=== PATIENT | male | born 1955 | race Caucasian/White ===

== ENCOUNTER → 2017-05-17 09:01 | Outpatient (CLI) | payer MEDICARE, SELFPAY ==
[2017-05-17 13:28] LABS: Basophils # 0.1 K/mm3 (0-0.2); Basophils % 0.8 % (0.1-2.0); Eosinophils # 0.2 K/mm3 (0.0-0.4); Eosinophils % 2.3 % (0.1-12.0); Hematocrit 43.5 % (42.0-52.0); Hemoglobin 14.4 g/dL (14.1-18.0); Lymphocytes # 1.6 K/mm3 (0.7-4.5); Lymphocytes % 22.1 K/mm3 (10-50); Mean Corpuscular HGB Conc 33.1 g/dL (31.8-35.4); Mean Corpuscular Volume 96.9 fl (80-94); Mean Platelet Volume 8.7 fl (7.4-10.4); Monocytes # 0.5 K/mm3 (0.1-1.0); Neutrophils # 4.8 K/mm3 (1.8-7.8); Neutrophils % 67.9 % (37.0-80.0); Platelet Count 228 K/mm3 (142-424); Red Blood Count 4.49 M/mm3 (4.60-6.20); Red Cell Distribution Width 15.3 % (11.5-17.5)
[2017-05-17 13:52] LABS: Alanine Aminotransferase 38 U/L (12-78); Albumin Level 3.4 gm/dL (3.4-5.0); Albumin/Globulin Ratio 1.1 (1.1-1.8); Alkaline Phosphatase 137 U/L (46-116); Anion Gap 13.8 mEq/L (5-15); Aspartate Amino Transferase 19 U/L (15-37); Bilirubin,Total 0.4 mg/dL (0.2-1.0); Blood Urea Nitrogen 19 mg/dL (7-18); Calcium 9.2 mg/dL (8.5-10.1); Carbon Dioxide 27 mmol/L (21.0-32.0); Chloride 108 mmol/L (98-107); Chol/HDL Ratio 3.3 (1-3.5); Cholesterol 109 mg/dL (140-200); Creatinine,Serum 1.53 mg/dL (0.70-1.30); Estimated Glomerular Filt Rate 47 ml/min (>60); GFR (African American) 56 ML/MIN (>60); Globulin 3.1 gm/dl (1.3-3.2); Glucose 106 mg/dL (74-106); HDL Cholesterol 33 mg/dL (27-67); LDL Cholesterol 54 mg/dL (0-130); Potassium 3.8 mmoL/L (3.5-5.1); Sodium 145 mmol/L (136-145); Thyroid Stimulating Hormone 0.41 uIU/ml (0.358-3.740); Total Protein,Serum 6.5 gm/dL (6.4-8.2); Triglycerides 111 mg/dL (30-200); VLDL Cholesterol 22 mg/dL (0-40)
== END ==
PROVIDERS: PCP Internal Medicine Adolescent Medicine; Visit Provider Internal Medicine Adolescent Medicine
DX: I10 Essential (primary) hypertension (principal); E78.5 Hyperlipidemia, unspecified; E03.9 Hypothyroidism, unspecified
CPT/HCPCS: 36415; 80053; 80061; 84443; 85025

== ENCOUNTER → 2018-01-15 14:01 | Outpatient (CLI) | payer MEDICARE, SELFPAY ==
[2018-01-15 14:22] LABS: Basophils % 0.5 % (0.1-2.0); Eosinophils # 0.1 K/mm3 (0.0-0.4); Hematocrit 44.8 % (42.0-52.0); Hemoglobin 15.3 g/dL (14.1-18.0); Lymphocytes # 1.7 K/mm3 (0.7-4.5); Lymphocytes % 24.2 K/mm3 (10-50); Mean Corpuscular HGB Conc 34.1 g/dL (31.8-35.4); Mean Corpuscular Hemoglobin 32.6 pg (27.0-31.2); Mean Corpuscular Volume 95.6 fl (80-94); Mean Platelet Volume 8.1 fl (7.4-10.4); Monocytes # 0.7 K/mm3 (0.1-1.0); Monocytes % 9.3 % (1.7-9.3); Neutrophils # 4.5 K/mm3 (1.8-7.8); Platelet Count 234 K/mm3 (142-424); Red Blood Count 4.69 M/mm3 (4.60-6.20); Red Cell Distribution Width 14.6 % (11.5-17.5); White Blood Count 7.1 K/mm3 (4.8-10.8)
[2018-01-15 15:32] LABS: Anion Gap 10.6 mEq/L (5-15); Blood Urea Nitrogen 14 mg/dL (7-18); Calcium 9.3 mg/dL (8.5-10.1); Carbon Dioxide 31 mmol/L (21.0-32.0); Chloride 108 mmol/L (98-107); Creatinine,Serum 1.41 mg/dL (0.70-1.30); Estimated Glomerular Filt Rate 51 ml/min (>60); GFR (African American) 62 ML/MIN (>60); Glucose 93 mg/dL (74-106); Potassium 4.6 mmoL/L (3.5-5.1); Sodium 145 mmol/L (136-145)
== END ==
PROVIDERS: Family Provider Internal Medicine Adolescent Medicine; PCP Internal Medicine Adolescent Medicine; Visit Provider Surgery
DX: K46.9 Unspecified abdominal hernia without obstruction or gangrene (principal); Z01.818 Encounter for other preprocedural examination
CPT/HCPCS: 36415; 80048; 85025; 93005

== ENCOUNTER → 2020-07-17 07:35 | Outpatient (CLI) | payer MEDICARE, SELFPAY ==
--- NOTE | 2020-07-17 07:40 | CT_ITS ---
PROCEDURE: CT LUNG SCREENING CLINICAL INDICATION: H/O NICOTINE DEPENDENCE Current smoker 50 pack year smoking history COPD COMPARISON: CT CTAC CTA-CHEST from 06/11/2013 TECHNIQUE: The exam was performed on a GE Light Speed [address] scanner using 2.90 mGy CTDI. A low dose helical CT CHEST was performed on a multi-detector scanner. All CT scans at the facility use one or more dose reduction, viz: automated exposure control, ma/kV adjustment per patient size (including targeted exams where dose is matched to indication, i.e. head), or iterative reconstruction technique. The LDCT was performed in a facility that meets the criteria for the screening program. Data regarding this exam was submitted to ACR which is an approved registry. The order for this exam indicates that it came as a result of a lung cancer screening counseling shard decision-making visit that included all the elements required of such a visit including smoking cessation. The radiologist interpreting this exam meets the CMS criteria for the LDCT lung cancer screening program. The exam is reported using the Lung-RADS classification scale and reported to the ACR registry. NOTE: This study was performed for the specific purposes of lung cancer screening and is not an alternative to diagnostic chest CT. RADIATION DOSE: CTDI vol(CT dose Index-volume) = 2.90mG DLP (Dose Length Product) = 120.11 mGcm FINDINGS: COPD with scattered areas of scarring. There is an azygos fissure is a normal variant. Evidence of old granulomatous disease. 4 mm ground-glass nodule right upper lobe subpleural region less apparent from the previous exam. Stable nodularity noted in the left major fissure. OTHER FINDINGS: Coronary artery calcification. There is an infrarenal abdominal aortic aneurysm. This is incompletely imaged and measures up to 6 cm in AP dimension. IMPRESSION: Lung-RADS Category 1 Negative Follow-up: Continue annual screening with LDCT in 12 months There is at least a 6 cm abdominal aortic aneurysm incompletely image. This was noted on the ultrasound performed on the same day and patient's provider was notified of this finding. CT angiography of the aorta is suggested for further evaluation. Dictated by: Jaden Naik MD 07/20/2020 09:44 Jaden Naik MD in [place] 07/20/2020 09:44
--- NOTE | 2020-07-17 07:41 | US_ITS ---
PROCEDURE: US AORTA CLINICAL INDICATION: CARDIOVASCULAR DISORDER COMPARISON: US AOR US AORTA (RETROPERITONEAL) from 07/17/[address] LUNG SCREENING from 07/17/2020 FINDINGS: There is an abdominal aortic aneurysm which measures 6 x 6 cm fusiform in nature. This is increased in size previously measuring 4 x 4 cm. There is intramural plaque with some calcification. Proximal common iliacs measure 1.3 and 1 cm. IMPRESSION: 6 cm abdominal aortic aneurysm Dictated by: Jaden Naik MD 07/17/2020 09:15 Jaden Naik MD in [place] 07/17/2020 09:15
--- NOTE | 2020-07-17 08:42 | US_ITS ---
APPROVED REPORT Exam Type: Lower Extremity Segmental Pressures Telephone Operator Receptionist: Rica Huff RVT Indications Rest Pain: Bilaterally Current Smoker Risk Factors Hypertension CAD Hyperlipidemia TIA/CVA History Cardiac Disease Current Smoker Pressures/Indices Right Indices Left Indices Brachial 149.00 mmHg Brachial 135.00 mmHg Low Thigh 136.00 mmHg 0.91 Low Thigh 144.00 mmHg 0.97 Calf 139.00 mmHg 0.93 Calf 151.00 mmHg 1.01 Ankle(PT) 156.00 mmHg 1.05 Ankle(PT) 153.00 mmHg 1.03 Ankle(DP) 145.00 mmHg 0.97 Ankle(DP) 149.00 mmHg 1.00 Digit 138.00 mmHg 0.93 Digit 126.00 mmHg 0.85 Findings RT ELDER:1.05 LT ELDER:1.03 RT TBI:0.93 LT TBI:0.85 NORMAL PULSES BILATERAL NORMAL WAVEFORMS BILATERAL Conclusion RT ELDER:1.05 LT ELDER:1.03 RT TBI:0.93 LT TBI:0.85 NORMAL PULSES BILATERAL NORMAL WAVEFORMS BILATERAL Normal appearing resting noninvasive lower extremity arterial study. Electronically signed by : Jaden Naik MD 07/17/2020 16:16:54
== END ==
PROVIDERS: PCP Nurse Practitioner Family; Visit Provider Nurse Practitioner Family
DX: M79.604 Pain in right leg; Z87.891 Personal history of nicotine dependence; Z12.2 Encounter for screening for malignant neoplasm of respiratory organs; Z13.6 Encounter for screening for cardiovascular disorders; M79.605 Pain in left leg; R09.89 Other specified symptoms and signs involving the circulatory and respiratory systems
CPT/HCPCS: 71271; 76770; 93923

== ENCOUNTER → 2020-08-01 08:30 | Outpatient (CLI) | payer MEDICARE, SELFPAY ==
[2020-08-01 10:04] LABS: Blood Urea Nitrogen 24 mg/dl (9-20); Estimated Glomerular Filt Rate 56 ml/min (>60); GFR (African American) 67 ML/MIN (>60)
== END ==
PROVIDERS: Visit Provider Thoracic Surgery (Cardiothoracic Vascular Surgery)
DX: I71.4 Abdominal aortic aneurysm, without rupture (principal)
CPT/HCPCS: 36415; 82565; 84520

== ENCOUNTER → 2020-08-04 10:17 | Outpatient (CLI) | payer MEDICARE, SELFPAY ==
--- NOTE | 2020-08-04 10:21 | CT_ITS ---
Procedure: CT ANGIO ABDOMEN PELVIS CLINICAL HISTORY: AAA COMPARISON: No exams were available for comparison TECHNIQUE: IV Contrast: 100ml Isovue 370 Axial images obtained with sagittal and coronal reformats. All CT scans at the facility use one or more dose reduction, viz: automated exposure control, ma/kV adjustment per patient size (including targeted exams where dose is matched to indication, i.e. head), or iterative reconstruction technique. FINDINGS: Atherosclerotic vascular calcification of the visualized aorta. There is an infrarenal abdominal aortic aneurysm measuring 6.3 x 6 centimeters. There is significant intramural thrombus noted with more than 50 percent of the lumen occupied by thrombus. The proximal extent of the abdominal aortic aneurysm is noted approximately 3 centimeters below the level of the renal arteries. The aneurysm extends up to the level of the bifurcation. Multiple focal linear high calcifications are noted within the thrombosis of the aneurysm. Retroaortic left renal vein is noted. Bilateral common iliac arteries demonstrate are aneurysmal measuring 1.6 centimeters on the right and 1.6 centimeters on the left. Extensive atherosclerotic vascular calcification of the visualized thoracic aorta. No significant retroperitoneal soft tissue density to suggest leak. Minor atherosclerotic vascular calcification noted at the origin of the celiac trunk and SMA without evidence of stenosis. Minor bibasal atelectasis is noted. Median sternotomy is partially visualized. The liver is unremarkable. Multiple hypodense lesions are noted in the kidneys bilaterally measuring up to the 1.3 centimeters. The adrenal glands are unremarkable. Multiple calcifications in the spleen, likely secondary to prior granulomatous disease. Visualized large and small bowel loops demonstrate no focal wall thickening, obstruction or adjacent inflammatory changes. Few colonic diverticula without evidence of diverticulitis. Multilevel degenerative changes of the visualized lumbar spine. IMPRESSION: Infrarenal abdominal aortic aneurysm measuring 6.3 x 6.2 meters, demonstrates intraluminal thrombus with calcifications. Minor atherosclerotic calcification noted at the origins of the celiac trunk, SMA and bilateral renal arteries without evidence significant stenosis. Dictated by: Mandy Michaels 08/04/2020 11:11 Mandy Michaels in [place] 08/04/2020 11:11
== END ==
PROVIDERS: PCP Nurse Practitioner Family; Visit Provider Thoracic Surgery (Cardiothoracic Vascular Surgery)
DX: I71.4 Abdominal aortic aneurysm, without rupture (principal)
CPT/HCPCS: 74174; Q9967

== ENCOUNTER → 2021-01-13 09:33 | Outpatient (CLI) | payer MEDICARE, SELFPAY ==
--- NOTE | 2021-01-13 09:49 | CT_ITS ---
Procedure: CT ANGIO ABDOMEN/FEMORAL CLINICAL HISTORY: AAA Abdominal aortic aneurysm COMPARISON: CT CT ANGIO ABDOMEN PELVIS from 08/04/2020 TECHNIQUE: IV Contrast: 100ml Isovue 370 Axial images obtained with sagittal and coronal reformats. All CT scans at the facility use one or more dose reduction, viz: automated exposure control, ma/kV adjustment per patient size (including targeted exams where dose is matched to indication, i.e. head), or iterative reconstruction technique. FINDINGS: CTA abdomen: Unfortunately, the exam does not cover the abdominal aorta at the level of an above the renal arteries to include the SMA and celiac. There been multiple attempts to contact the patient for repeat exam to include its area however they have been unsuccessful. Repeat exam to include the upper abdominal aorta can be performed if needed. There has been interval insertion of an aortoiliac stent graft. The most superior aspect of the graft is not included on the images. No evidence of graft leak. The [place] abdominal aorta measures 6.8 cm AP and 6 cm transverse with mural thrombus and scattered areas of calcification. The iliac limbs of the graft are widely patent. The origins of the renal arteries, SMA, and celiac are not included on the study. No significant stenosis of the iliac arteries. Lower extremity extremity runoff: Mild atheromatous changes. No significant stenotic lesions evident. The common femoral, femoral, popliteal, and trifurcation vessels are unremarkable. There is 3 vessel runoff to the ankle on both sides. The profundus femora are patent Nonvascular a large gallstone is present. No evidence of retroperitoneal hemorrhage. There are small bilateral renal cysts. There are 2 nonobstructing right renal calculi are present in the lower pole at 2 mm each. There is colonic diverticulosis but no evidence of diverticulitis. There are minimal osteoarthritic changes of the knees with chondrocalcinosis of the medial meniscus on both sides IMPRESSION: 1. Status post aorto iliac stent graft placement. No evidence of graft leak. No change in the aneurysmal dilatation of the [place] aorta with mural thrombus and calcific plaque. 2. Cholelithiasis. 3. Unremarkable bilateral lower extremity runoff. 4. Exam does not cover the most cephalad portion of the stent, ostium of the renal arteries, and the origin of the celiac and SMA. Multiple attempts have been made to contact the patient to return for repeat exam of the upper abdominal aorta but have been unsuccessful. Dictated by: Jaden Naik MD 01/27/2021 09:47 Jaden Naik MD in [place] 01/27/2021 09:47
[2021-01-13 10:04] LABS: Blood Urea Nitrogen 16 mg/dl (9-20); Estimated Glomerular Filt Rate 51 ml/min (>60); GFR (African American) 62 ML/MIN (>60)
== END ==
PROVIDERS: PCP Nurse Practitioner Family; Visit Provider Thoracic Surgery (Cardiothoracic Vascular Surgery)
DX: I71.4 Abdominal aortic aneurysm, without rupture (principal)
CPT/HCPCS: 36415; 75635; 82565; 84520; Q9967

== ENCOUNTER → 2021-07-19 10:36 | Outpatient (CLI) | payer MEDICARE, SELFPAY ==
--- NOTE | 2021-07-19 10:40 | CT_ITS ---
FINAL REPORT CLINICAL HISTORY: ENCOUNTER FOR SCREENING FOR MALIGNANT NEOPLASM smoker , 1ppd x 40 years COMPARISON: July 17, 2020 FINDINGS: Low-Dose Chest CT CTDI vol (mGy): 2.90 DLP (mGy-cm): 114.90 Axial images were obtained from the lung apex to the mid abdomen by computed tomography. Low-dose protocol was utilized. FINDINGS: CHEST: There is no axillary adenopathy. There is no hilar or mediastinal adenopathy. The heart is proper size. There is been median sternotomy. There is no pericardial or pleural effusion. Limited images of the upper abdomen are unremarkable. Lung window images demonstrate mild changes of emphysema. There is mild scarring. There is a calcified granuloma in the left upper lobe. There is a 4 mm nodule in the right upper lobe well seen on image 48, stable. IMPRESSION: Right upper lobe nodule. Lung RADS category 2. Recommend 12 month follow-up low-dose chest CT. Reviewed, Interpreted and Dictated by Caesar Bourgeois III, MD Transcribed by Jessica Robles Authenticated by Caesar Bourgeosi III, MD on 07/19/2021 01:14:31 PM [facility]
== END ==
PROVIDERS: PCP Nurse Practitioner Family; Visit Provider Nurse Practitioner Family
DX: Z87.891 Personal history of nicotine dependence (principal); Z12.2 Encounter for screening for malignant neoplasm of respiratory organs
CPT/HCPCS: 71271

== ENCOUNTER → 2022-01-12 12:34 | Outpatient (CLI) | payer MEDICARE, SELFPAY ==
--- NOTE | 2022-01-12 13:05 | CT_ITS ---
FINAL REPORT TECHNIQUE: Axial CT images were performed through the abdomen pelvis utilizing a CTA protocol. Coronal and sagittal reformatted images were submitted. This study was performed with techniques to keep radiation doses as low as reasonably achievable (ALARA). Individualized dose reduction techniques using automated exposure control or adjustment of mA and/or kV according to the patient's size were employed. CLINICAL HISTORY: S/P AAA REPAIR FINDINGS: CTA: There is a patent aortic stent graft. The aneurysm sac measures 5.4 cm and previously measured 6.3 cm. There are multiple calcifications within the thrombus, stable. There is no convincing evidence of endograft leak. There is mild narrowing at the origin of the celiac axis. The proximal SMA is patent. The ACACIA is occluded at its origin. The iliac limbs are patent. The renal arteries are patent bilaterally. ABDOMEN: The liver is normal in size and attenuation. The gallbladder is present. The spleen is unremarkable. The adrenals are normal. The pancreas is unremarkable. There are multiple small renal masses that are stable and likely represent cysts. No free fluid or adenopathy is identified. No findings for mechanical bowel obstruction are identified. PELVIS: The appendix is not identified. There are several sigmoid diverticulum. The urinary bladder is unremarkable. No free fluid, free air, abscess or adenopathy is identified. IMPRESSION: Patent aortic stent graft. Aneurysm sac measures 5.4 cm and previously measured 6.3 cm. Reviewed, Interpreted and Dictated by Caesar Bourgeois III, MD Transcribed by Ash Arias Authenticated and [facility]
--- NOTE | 2022-01-12 13:37 | CT_ITS ---
FINAL REPORT CLINICAL HISTORY: S/P AAA REPAIR FINDINGS: Thin section axial CT images of the chest were obtained with contrast. 3D reformatted images were also obtained. This study was performed with techniques to keep radiation doses as low as reasonably achievable (ALARA). Individualized dose reduction techniques using automated exposure control or adjustment of mA and/or kV according to the patient's size were employed. There is evidence of median sternotomy. There is no evidence of pulmonary embolism. There is ectasia of the descending thoracic aorta at 3.1 cm. There is no evidence of thoracic aortic aneurysm or dissection. There is no evidence of mediastinal or hilar mass or adenopathy. There is bilateral apical scarring. A 6 mm nodule is seen near the minor fissure. There is bibasilar atelectasis or scarring. IMPRESSION: Ectasia of the descending thoracic aorta without aneurysm. 6 mm pulmonary nodule near the minor fissure. Consider follow-up CT in 6-12 months. Reviewed, Interpreted and Dictated by Caesar Bourgeois III, MD Transcribed by Ash Arias Authenticated and [facility]
== END ==
PROVIDERS: PCP Nurse Practitioner Family; Visit Provider Thoracic Surgery (Cardiothoracic Vascular Surgery)
DX: R42 Dizziness and giddiness (principal); I71.4 Abdominal aortic aneurysm, without rupture; Z98.890 Other specified postprocedural states; Z86.79 Personal history of other diseases of the circulatory system
CPT/HCPCS: 71275; 74174; Q9967

== ENCOUNTER → 2022-02-15 08:08 | Outpatient (POV) | payer MEDICARE, SELFPAY | PROVIDERS: Visit Provider Dermatology | DX: Z00.00 Encounter for general adult medical examination without abnormal findings (principal) ==

== ENCOUNTER → 2022-02-15 08:44 | Outpatient (CLI) | payer MEDICARE, SELFPAY ==
--- NOTE | 2022-02-15 08:52 | CA_ITS ---
FINAL REPORT TECHNIQUE: Color Doppler, duplex Doppler and diggs scale sonography of the bilateral neck arterial vasculature was performed. Velocities were measured in the carotid arteries. Stenosis evaluation based on the validated velocity criteria. CLINICAL HISTORY: DIZZINESS,HTN,CAD,SMOKER FINDINGS: The peak systolic velocity of the right common carotid artery is 62 cm/s. The peak systolic velocity of the right internal carotid artery is 77 cm/s and end diastolic velocity 25 cm/s. The ICA/CCA ratio is 1.44. A bqyi-ny-okqffvzz amount of plaque is present. The right external carotid artery is patent. The right vertebral artery is patent with antegrade flow. The peak systolic velocity of the left common carotid artery is 59 cm/s. The peak systolic velocity of the left internal carotid artery is 76 cm/s and end diastolic velocity 27 cm/s. The ICA/CCA ratio is 1.42. A cdug-zg-eibeamxy amount of plaque is present. The left external carotid artery is patent.The left vertebral artery is patent with antegrade flow. Incidental note is made of a right thyroid nodule. IMPRESSION: Less than 50% bilateral carotid stenoses. Bilateral patent vertebral arteries with antegrade flow. If indicated, CTA or MRA could further evaluate. Reviewed, Interpreted and Dictated by Caesar Bourgeois III, MD Transcribed by Ash Arias Authenticated and [facility]
== END ==
PROVIDERS: PCP Nurse Practitioner Family; Visit Provider Nurse Practitioner Family
DX: R42 Dizziness and giddiness (principal)
CPT/HCPCS: 93880

== ENCOUNTER → 2022-08-17 14:11 | Outpatient (CLI) | payer MEDICARE, SELFPAY ==
--- NOTE | 2022-08-17 14:15 | CT_ITS ---
FINAL REPORT TECHNIQUE: Axial CT images of the chest were obtained without contrast. Low-dose protocol was utilized. This study was performed with techniques to keep radiation doses as low as reasonably achievable (ALARA). Individualized dose reduction techniques using automated exposure control or adjustment of mA and/or kV according to the patient's size were employed. CLINICAL HISTORY: H/O TOBACCO USE, 1 ppd x 50 years COMPARISON: 07/19/2021 FINDINGS: CT CHEST WITHOUT, LOW DOSE SCREENING CT Di Vol: 2.90 mGy DLP: 114.90 mGy*cm There is no axillary, mediastinal, or hilar mass or adenopathy. The heart size is normal. There is evidence of prior median sternotomy. There is no pleural or pericardial effusion. The lung windows show 2 right upper lobe nodules measuring 4 mm seen on images 32 and 49 which are stable. Stable 5 mm nodule near the left major fissure, may represent fissural lymph node. There are several calcified granulomas in the left upper lobe. There is bilateral scarring. Mild emphysema is noted. Limited images of the upper abdomen are unremarkable. IMPRESSION: Stable lung nodules. LR Category 1: 12 month follow-up low-dose chest CT is recommended. Reviewed, Interpreted and Dictated by Caesar Bourgeois III, MD Transcribed by Bonita Womack Authenticated and [facility]
== END ==
PROVIDERS: PCP Nurse Practitioner Family; Visit Provider Nurse Practitioner Family
DX: Z87.891 Personal history of nicotine dependence (principal); Z12.2 Encounter for screening for malignant neoplasm of respiratory organs
CPT/HCPCS: 71271

== ENCOUNTER → 2023-01-10 09:19 | Outpatient (CLI) | payer MEDICARE, SELFPAY ==
--- NOTE | 2023-01-10 09:38 | CT_ITS ---
FINAL REPORT CLINICAL HISTORY: AAA COMPARISON: 01/12/2022 FINDINGS: Thin section axial CT images of the chest were obtained with contrast. This study was performed with techniques to keep radiation doses as low as reasonably achievable (ALARA). Individualized dose reduction techniques using automated exposure control or adjustment of mA and/or kV according to the patient's size were employed. There is evidence of a prior midline sternotomy. There is a 3.3 cm descending thoracic aortic aneurysm, stable when compared to the prior CT. There is no evidence of pulmonary embolism. There is no evidence of thoracic aorta dissection. There is no evidence of mediastinal or hilar mass or adenopathy. There is no evidence of pulmonary mass or nodule. There are mild changes of emphysema present, as well as mild scarring. IMPRESSION: 3.3 cm descending thoracic aortic aneurysm, stable. Mild scarring and mild changes of emphysema are again noted. Reviewed, Interpreted and Dictated by Caesar Bourgeois III, MD Transcribed by Stephanie Bragg Authenticated and [facility]
--- NOTE | 2023-01-10 09:38 | CT_ITS ---
FINAL REPORT TECHNIQUE: Pre-and postcontrast images of the abdomen were performed by computed tomography. Extensive 3-D reconstruction images were performed. A CTA was performed. This study was performed with techniques to keep radiation doses as low as reasonably achievable (ALARA). Individualized dose reduction techniques using automated exposure control or adjustment of mA and/or kV according to the patient's size were employed. CLINICAL HISTORY: AAA COMPARISON: 08/17/2022 FINDINGS: ABDOMEN: Precontrast images demonstrate no evidence of nephrolithiasis. No adrenal masses are identified. The liver, spleen and pancreas are unremarkable. Multiple renal cysts are again identified. CTA: The abdominal aorta once again reveals a patent stent graft, also seen on the prior exam of August. On today's examination this graft measures up to 4.5 cm in size, smaller than the 5.2 cm seen on the prior graft. There is no convincing evidence of graft endoleak. IMPRESSION: Patent aortic stent graft, measuring 4.5 cm on today's exam, was 5.2 cm in August. No convincing evidence of graft endoleak is seen. Reviewed, Interpreted and Dictated by Caesar Bourgeois III, MD Transcribed by Stephanie Bragg Authenticated and [facility]
[2023-01-10 10:13] LABS: Blood Urea Nitrogen 17 mg/dl (9-20); Estimated Glomerular Filt Rate 43 ml/min (>60); GFR (African American) 53 ML/MIN (>60)
== END ==
PROVIDERS: Pediatrics; PCP Nurse Practitioner Family; Visit Provider Thoracic Surgery (Cardiothoracic Vascular Surgery)
DX: I71.43 Infrarenal abdominal aortic aneurysm, without rupture (principal); Z98.890 Other specified postprocedural states
CPT/HCPCS: 36415; 71275; 74174; 82565; 84520; Q9967

== ENCOUNTER 2024-01-23 09:42 | Outpatient (CLI) | payer MEDICARE, SELFPAY ==
[2024-01-23 10:35] LABS: Estimated Glomerular Filt Rate 55 ml/min (>60); GFR (African American) 67 ML/MIN (>60)
== END 2024-01-23 23:59 | disposition home or self-care (01) ==
PROVIDERS: PCP Nurse Practitioner Family; Visit Provider Nurse Practitioner Family
DX: I71.43 Infrarenal abdominal aortic aneurysm, without rupture (principal); Z98.890 Other specified postprocedural states; Z86.79 Personal history of other diseases of the circulatory system
CPT/HCPCS: 36415; 82565

== ENCOUNTER 2024-02-01 09:17 | Outpatient (CLI) | payer MEDICARE, SELFPAY ==
--- NOTE | 2024-02-01 09:24 | CT_ITS ---
FINAL REPORT TECHNIQUE: Pre-and postcontrast images of the abdomen and pelvis were performed by computed tomography. Extensive 3-D reconstruction images were performed. A CTA was performed. This study was performed with techniques to keep radiation doses as low as reasonably achievable (ALARA). Individualized dose reduction techniques using automated exposure control or adjustment of mA and/or kV according to the patient's size were employed. CLINICAL HISTORY: AORTIC AN W/OUT RUP COMPARISON: 01/10/2023 FINDINGS: ABDOMEN AND PELVIS: The lung bases are clear. Precontrast images demonstrate minimal right nephrolithiasis and multiple bilateral renal cysts, stable. No adrenal masses are identified. The liver, spleen and pancreas are unremarkable. There is moderate sigmoid diverticulosis without acute inflammatory change. There is a small left inguinal hernia containing fat. The prostate is unremarkable in appearance. CTA: There is an improved appearance of the iliamna aorta in this patient who has undergone a prior stent graft. On today's examination the greatest diameter of the iliamna aorta is 38 mm, was previously 45 mm. There is no evidence of endoleak, and the stent graft is widely patent. There is moderate stenosis of the celiac axis origin, as well as moderate right renal artery stenosis, stable. The SMA and left renal artery are widely patent. IMPRESSION: Improved appearance of the iliamna aorta in this patient who has undergone a prior stent graft. On today's examination the maximum diameter is 38 mm, was previously 45 mm in January 2023. No evidence of endoleak is present, and the stent graft is widely patent. Reviewed, Interpreted and Dictated by Malgorzata Espinoza MD Transcribed by Stephanie Bragg Authenticated and [facility]
[2024-02-01] MEDS: IOPAMIDOL-370 (76%);100ML BOTTLE 100 ML IV (09:48)
[2024-02-01] MEDS: SODIUM CHLORIDE 0.9% 10ML SYR (RAD ONLY) 10 ML IV (09:48)
[2024-02-01] MEDS: 0.9 % SODIUM CHLORIDE 50 ML VIAL IV (09:48)
== END 2024-02-01 23:59 | disposition home or self-care (01) ==
LOC: RAD 09:18
PROVIDERS: PCP Nurse Practitioner Family; Visit Provider Nurse Practitioner Family
DX: I71.43 Infrarenal abdominal aortic aneurysm, without rupture (principal)
CPT/HCPCS: 74174; Q9967

== ENCOUNTER 2024-05-31 07:28 | Day surgery (SDC) | payer MEDICARE, SELFPAY ==
[2024-05-24 15:44] VITALS: BMI 29.2
--- NOTE | 2024-05-31 07:56 | EXP.ANES.CKL ---
[facility] Disclaimer: The information contained in this section may have been updated after the patient was seen, as this information can be updated by other users. Medical History COPD (chronic obstructive pulmonary disease) History of transient ischemic attack (TIA) Osteoarthritis AAA (abdominal aortic aneurysm) History of gastroesophageal reflux (GERD) Hypothyroid History of left heart catheterization (LHC) Surgical History History of arthroscopy of right shoulder H/O arthroscopic knee surgery History of tonsillectomy History of appendectomy History of cholecystectomy History of colonoscopy Family History Other No significant family history Social History Smoking Status: Current every day smoker tobacco type: cigarettes packs per day: 1 alcohol intake: never substance use type: denies use current occupational status: disabled Travel in the last 8 weeks: None household members: children housing: house current occupational exposures/hazards: No caffeine: Yes Have you lived/traveled outside [place] in past 30 days?: No Contact w/someone who lives/traveled outside US past 30 days?: No Exposure to someone with infectious disease in past 14 days?: No Do you have a fever (greater than 100.4 F or 38 C)?: No Have you tested positive for COVID-19: No Exposed to someone with COVID-19 in past 14 days?: No Do you have a sore throat?: No Do you have a cough?: No Do you have any weakness?: No Are you experiencing any nausea/vomitting?: No Do you have any diarrhea?: No Are you experiencing any unusual bleeding?: No Do you have any muscle aches/pain?: No Do you have any abdominal pain?: No Are you experiencing loss of taste or smell?: No [facility] Anesthesia Checklist Patient Identification Patient Identification: Arm Band Structural Data Admitted From: Home Planned Operative Procedure/s: Colonoscopy Consent for Planned Operative Procedure(s) Verified: Yes Verified Documents: Surgical Consent and History and Physical NPO Status Verified Time NPO: 00:00 Additional verifications Anesthesia Reactions: No Hx Blood Transfusions: No Blood Transfusion Reaction: No Airway Assessment Mallampati Score:: Class II C-Spine Mobility Assessed: Yes TMJ Mobility Assessed: Yes Dentition: Edentulous Neurological Assessment Level of Consciousness: Awake, Alert and Appropriate Anesthesia Plan Anesthesia Risk discussed: Yes Anesthesia Plan: Verified ASA Class: III Anesthesia Type: MAC
[2024-05-31 07:57] VITALS: BP 130/67; PULSE 55; RESP 16; TEMP 36.6; O2SAT 99
--- NOTE | 2024-05-31 07:57 | P.PCN_ITS ---
Procedure: Date: 05/31/24 Patient Date of :: 1955 Procedure Performed:: Total colonoscopy to terminal ileum with polypectomy Indications:: Patient is a 68-year-old disabled smoker from [place] with history of abdominal aortic aneurysm, GERD, hypothyroidism, COPD, TIA. I had performed colonoscopy on 03/15/2016 at which time he had at least 3 tubular adenomas. Follow-up colonoscopy done on 05/28/2019 revealed no adenomatous polyps but given his prior history plan was for follow-up in 5 years. Performing Provider:: Caesar Lin MD Referring Provider:: Ayah Woods Sedation:: MAC sedation Procedure:: Patient history was obtained and appropriate physical examination was performed. Patient's medications and allergies were reviewed. Informed consent was obtained after explaining the benefits, alternatives, and risks of the procedure including, but not limited to, bleeding, perforation, missed lesions, and adverse reaction to anesthesia medications. Patient was transported to endoscopy procedure room. Patient was connected to monitoring devices. Throughout the procedure the patient's blood pressure, pulse, and oxygen saturations were monitored continuously. Patient identification and planned procedure were verified by the staff. Patient was positioned in lateral decubitus position. Digital anorectal exam was performed. Variable stiffness Olympus colonoscope was inserted and adv anced under direct visualization to the cecum. Adequacy of the colonic preparation was noted. The colonoscope was advanced a short distance into the terminal ileum. The colonoscope was then slowly withdrawn while carefully examining the color, texture, anatomy, and integrity of the mucosoa circumferentially. Colonoscope was then withdrawn. Impression: Colonic preparation was fair as there was particulate opaque liquid stool throughout the colon. However good visualization was achieved with high-volume trans colonoscopic irrigation and suctioning. On the ileocecal valve there is focus of prominent mucosa which was likely inconsequential. It was biopsied with cold biopsy forceps. In the periappendiceal location there is a tiny diminutive possible polyp removed with biopsy forceps. The ascending colon there were a couple of tiny diminutive polyps removed with biopsy forceps. The rectosigmoid region there were a couple of hyperplastic appearing polyps removed with cold snare. Despite repeated reinsertion and withdrawal of the colonoscope one of the polyps was unable to be retrieved. There were minimal internal hemorrhoids. Findings:: Tiny diminutive subtle polyps as noted Recommendations:: Repeat colonoscopy pending pathology Complications:: None immediate Estimated blood obtained (mL): 1 Colonoscopy Component Colonoscopy Component Was a colonoscopy performed during today's procedure?: Yes Recommended follow up colonoscopy of at least 10 years?: No If no, follow up colonoscopy recommended in ___ years?: See above Reason for not recommending >/= 10 yr follow-up interval?: See above
[2024-05-31] MEDS: LACTATED RINGERS 1000ML 1,000 ML 50 ML IV (08:07)
[2024-05-31 08:15] VITALS: O2SAT 5
[2024-05-31 08:58] VITALS: BP 114/65; PULSE 52; RESP 18; O2SAT 97
[2024-05-31 09:08] VITALS: BP 122/65; PULSE 51; RESP 18; O2SAT 97
[2024-05-31 09:18] VITALS: BP 120/80; PULSE 57; RESP 16; O2SAT 97
[2024-05-31 09:28] VITALS: BP 123/76; PULSE 64; RESP 16; O2SAT 98
== END 2024-05-31 09:35 | disposition home or self-care (01) ==
PROVIDERS: PCP Nurse Practitioner Family; Visit Provider Surgery
PROC: 0DJD8ZZ Inspection of Lower Intestinal Tract, Via Natural or Artificial Opening Endoscopic (ICD-10-PCS; CPT 45380; principal; 2024-05-31 08:30)
DX: K63.5 Polyp of colon (principal); K64.8 Other hemorrhoids; Z86.0100 Personal history of colon polyps, unspecified
CPT/HCPCS: 45380; 45385; 88305; J7120

== ENCOUNTER 2024-07-17 10:01 | Outpatient (CLI) | payer MEDICARE, SELFPAY ==
--- NOTE | 2024-07-17 10:04 | CT_ITS ---
FINAL REPORT TECHNIQUE: Axial images were obtained from the lung apex to the mid abdomen by computed tomography. This study was performed with techniques to keep radiation doses as low as reasonably achievable (ALARA). Individualized dose reduction techniques using automated exposure control or adjustment of mA and/or kV according to the patient's size were employed. CLINICAL HISTORY: SCREENING, CURRENT SMOKER 1PPD X45 YEARS COMPARISON: 08/17/2022 FINDINGS: CHEST CT LOW DOSE CTDI vol (mGy): DLP (mGy-cm): There is no axillary adenopathy. There is no hilar or mediastinal adenopathy. The heart is normal in size. There is no pericardial or pleural effusion. There are 2 nodules in the right upper lobe. The smaller more superior focus measures 3 mm well-seen on image 24 of series 604. The more inferior focus measures 4 mm seen on image 37 of series 604. There is a stable nodule along the left major fissure measuring 5 mm well-seen on image 40 of series 604. There is a second nodule along the left major fissure measuring 4 mm well-seen on image 34 of series 604. Limited images of the upper abdomen reveal a 3 mm cyst in the superior pole of the left kidney. IMPRESSION: Stable nodules as detailed above. Lung RADS category 1. Recommend 12 month follow-up low-dose chest CT. Reviewed, Interpreted and Dictated by Pavel Harp MD Transcribed by Shanika Mixon Authenticated and [facility]
== END 2024-07-17 23:59 | disposition home or self-care (01) ==
LOC: RAD 10:02
PROVIDERS: PCP Nurse Practitioner Family; Visit Provider Nurse Practitioner Family
DX: Z87.891 Personal history of nicotine dependence (principal); Z12.2 Encounter for screening for malignant neoplasm of respiratory organs
CPT/HCPCS: 71271

== ENCOUNTER 2024-08-07 13:17 | Outpatient (CLI) | payer MEDICARE, SELFPAY | END 2024-08-07 23:59 | disposition home or self-care (01) | LOC: LAB.DROPOF 13:17 | PROVIDERS: PCP Nurse Practitioner; Visit Provider Nurse Practitioner | DX: H60.90 Unspecified otitis externa, unspecified ear (principal) | CPT/HCPCS: 87070 ==